=== PATIENT | male | born 1980 | race Caucasian/White ===

== ENCOUNTER 2016-07-04 20:23 | Observation (INO) | payer MEDICAID ==
[2016-07-04 21:37] LABS: % IMMATURE GRANULYOCYTES 0.3 % (0.0-1.1); ABSOLUTE IMMATURE GRANULOCYTES 0.02 10^3/uL (0.00-0.10); ADD DIFF? NO; ADD MORPH? NO; ADD SCAN? NO; ATYPICAL LYMPHOCYTE FLAG 20 (0-99); FRAGMENT RBC FLAG 0 (0-99); HEMATOCRIT 39.5 % (40.0-51.0); HEMOGLOBIN 14.1 g/dL (13.7-17.5); LEFT SHIFT FLG 0 (0-99); LIPEMIA HEMOLYSIS FLAG 90 (0-99); MEAN CELL HEMOGLOBIN 30.5 pg (27.9-34.1); MEAN CELL HEMOGLOBIN CONCENTR. 35.7 g/dL (32.4-36.7); MEAN CELL VOLUME 85.3 fL (81.5-99.8); MEAN PLATELET VOLUME 8.8 fL (8.7-11.7); PLATELET CLUMPS FLAG 10 (0-99); PLATELET COUNT 221 10^3/uL (150-400); RED BLOOD CELL COUNT 4.63 10^6/uL (4.40-6.38); RED CELL DISTRIBUTION WIDTH 11.9 % (11.5-15.2)
--- NOTE | 2016-07-04 21:42 | EDPHY ---
H & P Stated Complaint: abd pain, n/v/d Source: Patient Exam Limitations: No limitations - Personal History Tetanus Vaccine Date: within 10 yrs - Medical/Surgical History Hx Asthma: No Hx Chronic Respiratory Disease: No Hx Diabetes: No Hx Cardiac Disease: No Hx Renal Disease: No Hx Cirrhosis: No Hx Alcoholism: No Hx HIV/AIDS: No Hx Splenectomy or Spleen Trauma: No Other PMH: finger surg, heartburn - Social History Smoking Status: Current every day smoker Time Seen by Provider: 07/04/16 20:35 HPI/ROS: CHIEF COMPLAINT: Abdominal pain HISTORY OF PRESENT ILLNESS: 36-year-old male presents emergency department complaining of abdominal pain x2 days. Patient reports he started with epigastric discomfort that progressed to nausea, 1 episode of emesis yesterday, his pain has changed to lower abdomen worsening in his right lower quadrant today with loose stools today. Patient report a decreased appetite, chills. No blood in emesis or stool. Pain is not worse after eating. He denies back pain , no urinary frequency, urgency or dysuria. No other complaints. No recent sick contacts. REVIEW OF SYSTEMS: A comprehensive 10 point review of systems is otherwise negative aside from elements mentioned in the history of present illness. (Danae Dhaliwal) - Physical Exam Exam: Physical Exam Gen: Alert and Oriented, NAD HEENT: PERRL, moist mucous membranes NECK: no meningismus CV: regular rate and regular rhythm PULM: CTAB, no wheezes ABDOMEN: soft, right lower quadrant tenderness to palpation, positive Rovsing's , positive rebound tenderness BACK: No CVA tenderness NEURO: Neurologically grossly intact EXTREMITIES: normal appearing SKIN: no rash or break in skin on exposed skin PSYCH: answers questions appropriately. (Danae Dhaliwal) Constitutional: Initial Vital Signs Temperature (C) 36.9 C 07/04/16 20:28 Heart Rate 78 07/04/16 20:28 Respiratory Rate 20 07/04/16 20:28 Blood Pressure 103/80 07/04/16 20:28 O2 Sat (%) 95 07/04/16 20:28 O2 Delivery Mode Room Air Allergies/Adverse Reactions: No Known Allergies Allergy (Unverified 07/04/16 20:27) Medical Decision Making - Diagnostics Imaging Results: Imaging Impressions Abdomen CT 07/04/16 21:54 Impression: 1. Mild right lower quadrant mesenteric adenitis. 2. The majority the appendix appears normal; however, there is a short segmental component which is mildly thickened, measuring up to 9.0 mm, and an early or mild localized appendicitis cannot be excluded. There is no periappendiceal inflammation, or fluid fluid collection, however. 3. Mild hepatosplenomegaly. Findings were discussed with Danae Dhaliwal NP at 22:41, on 07/04/2016. ED Course/Re-evaluation: IV established, CBC and chemistry panel and urinalysis obtained. Patient has an exam suspicious for appendicitis. CBC shows no elevated white blood cell count, chemistry panel is unremarkable, LFTs and lipase normal. CT abdomen pelvis with IV contrast obtained showing mesenteric adenitis, a short segmental area of thickened appendix and constipation. The patient has no evidence of urinary tract infection. Dr. Vieira was consulted and he saw the patient. Patient is requiring IV pain medication. He will be admitted to the hospital with Dr. Vieira for continued observation. (Danae Dhaliwal) Differential Diagnosis: The differential diagnosis for the patient's abdominal pain included but was not limited to appendicitis, cholecystitis, hernias, testicular torsion, gastritis, and urinary tract infection. (Danae Dhaliwal) Other Provider: The patient was evaluated and managed by the Physician Controls Technician/ Nurse Practitioner. My co-signature indicates that I have reviewed this chart and I agree with the findings and plan of care as documented. I am the secondary supervising physician. (Nara Villarreal) - Data Points Laboratory Results: Laboratory Results 07/04/16 21:21 07/04/16 21:21 07/04/16 07/04/16 07/04/16 22:10 21:21 21:21 WBC 6.72 10^3/uL 10^3/uL (3.80-9.50) RBC 4.63 10^6/uL 10^6/uL (4.40-6.38) Hgb 14.1 g/dL g/dL (13.7-17.5) Hct 39.5 % L % (40.0-51.0) MCV 85.3 fL fL (81.5-99.8) MCH 30.5 pg pg (27.9-34.1) MCHC 35.7 g/dL g/dL (32.4-36.7) RDW 11.9 % % (11.5-15.2) Plt Count 221 10^3/uL 10^3/uL (150-400) MPV 8.8 fL fL (8.7-11.7) Neut % (Auto) 60.5 % % (39.3-74.2) Lymph % (Auto) 26.5 % % (15.0-45.0) [place] % (Auto) 9.1 % % (4.5-13.0) Eos % (Auto) 3.0 % % (0.6-7.6) Baso % (Auto) 0.6 % % (0.3-1.7) Nucleat RBC Rel Count 0.0 % % (0.0-0.2) Absolute Neuts (auto) 4.07 10^3/uL 10^3/uL (1.70-6.50) Absolute Lymphs (auto) 1.78 10^3/uL 10^3/uL (1.00-3.00) Absolute Monos (auto) 0.61 10^3/uL 10^3/uL (0.30-0.80) Absolute Eos (auto) 0.20 10^3/uL 10^3/uL (0.03-0.40) Absolute Basos (auto) 0.04 10^3/uL 10^3/uL (0.02-0.10) Absolute Nucleated RBC 0.00 10^3/uL 10^3/uL (0-0.01) Immature Gran % 0.3 % % (0.0-1.1) Immature Gran # 0.02 10^3/uL 10^3/uL (0.00-0.10) Sodium Potassium Chloride Carbon Dioxide Anion Gap BUN Creatinine Estimated GFR Glucose Calcium Total Bilirubin 1.4 mg/dL mg/dL (0.1-1.4) Conjugated Bilirubin 0.5 mg/dL mg/dL (0.0-0.5) Unconjugated Bilirubin 0.9 mg/dL mg/dL (0.0-1.1) AST 31 IU/L IU/L (17-59) ALT 42 IU/L IU/L (21-72) Alkaline Phosphatase 59 IU/L IU/L (38-126) Total Protein 6.6 g/dL g/dL (6.3-8.2) Albumin 4.3 g/dL g/dL (3.5-5.0) Lipase 106.0 IU/L IU/L (23-300) Urine Color PALE YELLOW Urine Appearance CLEAR Urine pH 6.0 (5.0-7.5) Ur Specific [place] 1.009 (1.002-1.030) Urine Protein NEGATIVE (NEGATIVE) Urine Ketones NEGATIVE (NEGATIVE) Urine Blood 2+ H (NEGATIVE) Urine Nitrate NEGATIVE (NEGATIVE) Urine Bilirubin NEGATIVE (NEGATIVE) Urine Urobilinogen NEGATIVE EU EU (0.2-1.0) Ur Leukocyte Esterase NEGATIVE (NEGATIVE) Urine RBC 1-3 /hpf /hpf (0-3) Urine WBC NONE SEEN /hpf /hpf (0-3) Ur Epithelial Cells NONE SEEN /lpf /lpf (NONE-1+) Urine Glucose NEGATIVE (NEGATIVE) 07/04/16 21:21 WBC RBC Hgb Hct MCV MCH MCHC RDW Plt Count MPV Neut % (Auto) Lymph % (Auto) [place] % (Auto) Eos % (Auto) Baso % (Auto) Nucleat RBC Rel Count Absolute Neuts (auto) Absolute Lymphs (auto) Absolute Monos (auto) Absolute Eos (auto) Absolute Basos (auto) Absolute Nucleated RBC Immature Gran % Immature Gran # Sodium 138 mEq/L mEq/L (134-144) Potassium 3.8 mEq/L mEq/L (3.5-5.2) Chloride 103 mEq/L mEq/L (97-110) Carbon Dioxide 25 mEq/l mEq/l (22-31) Anion Gap 10 mEq/L mEq/L (8-16) BUN 12 mg/dL mg/dL (7-23) Creatinine 0.9 mg/dL mg/dL (0.7-1.3) Estimated GFR > 60 Glucose 93 mg/dL mg/dL (70-100) Calcium 10.4 mg/dL mg/dL (8.5-10.4) Total Bilirubin Conjugated Bilirubin Unconjugated Bilirubin AST ALT Alkaline Phosphatase Total Protein Albumin Lipase Urine Color Urine Appearance Urine pH Ur Specific [place] Urine Protein Urine Ketones Urine Blood Urine Nitrate Urine Bilirubin Urine Urobilinogen Ur Leukocyte Esterase Urine RBC Urine WBC Ur Epithelial Cells Urine Glucose Medications Given: Discontinued Medications Hydromorphone HCl (Dilaudid) 0.5 mg IVP EDNOW ONE Stop: 07/04/16 23:05 Last Admin: 07/04/16 23:14 Dose: 0.5 mg Morphine Sulfate (Morphine) 4 mg IVP EDNOW ONE Stop: 07/04/16 22:18 Last Admin: 07/04/16 22:20 Dose: 4 mg Departure - Departure Disposition: [facility] Inpatient Acute Clinical Impression: Abdominal pain Qualifiers: Abdominal location: right lower quadrant Qualified Code(s): R10.31 - Right lower quadrant pain Condition: Fair
[2016-07-04 22:02] LABS: ANION GAP 10 mEq/L (8-16); CALCIUM 10.4 mg/dL (8.5-10.4); CARBON DIOXIDE 25 mEq/l (22-31); CHLORIDE 103 mEq/L (97-110); CREATININE 0.9 mg/dL (0.7-1.3); GLOMERULAR FILTRATION RATE > 60; GLUCOSE 93 mg/dL (70-100); POTASSIUM 3.8 mEq/L (3.5-5.2); SODIUM 138 mEq/L (134-144)
[2016-07-04] MEDS ORDERED: IOPAMIDOL (ISOVUE-300) 100 ML BTL IV ONE (22:06)
[2016-07-04 22:31] LABS: ALBUMIN 4.3 g/dL (3.5-5.0); BILIRUBIN,TOTAL 1.4 mg/dL (0.1-1.4); BILIRUBIN-CONJUGATED 0.5 mg/dL (0.0-0.5); BILIRUBIN-UNCONJUGATED 0.9 mg/dL (0.0-1.1); TOTAL PROTEIN 6.6 g/dL (6.3-8.2)
[2016-07-04 22:32] LABS: COLOR PALE YELLOW; LEUKOCYTE ESTERASE,URINE NEGATIVE (NEGATIVE); NITRITE,URINE NEGATIVE (NEGATIVE)
[2016-07-04 22:39] LABS: WBC,URINE NONE SEEN /hpf (0-3)
[2016-07-04] MEDS ORDERED: HYDROmorphONE/DILAUDID 1 MG/ML SYR IVP ONE (23:04)
[2016-07-04] MEDS ORDERED: HYDROmorphONE/DILAUDID 1 MG/ML SYR ONE (23:04)
[2016-07-04] MEDS ORDERED: ONDANSETRON 4 MG/2 ML VIAL IVP PRN (23:23)
--- NOTE | 2016-07-05 00:32 | GHP ---
[f rep st] PREOP HISTORY AND PHYSICAL DATE OF ADMISSION: 07/04/2016 ADMITTING DIAGNOSIS: Abdominal pain and mesenteric adenitis. HISTORY: The patient is a 36-year-old male, who upon awakening yesterday morning, had pain across his abdomen which would come and go. It was described as squeezing or achy and would wax and wane. It continued through today. He had a breakfast of yogurt that he had to force. For lunch, he had a [employer] sandwich which he appeared to eat without difficulty. At 5:30 he was feeling poorly and tried to induce vomiting (successfully) but noticed no improvement. He did not eat dinner, just had crackers and drank water. In the middle of the night, he had loose stool. For breakfast this morning he had boone and egg sandwich and coffee. He ate only a part of it. For lunch he had a duck egg. At 6 p.m. he had ham and white beans. At 8:15 he came to the ER. He was not hungry at that time. He has not had recent upper respiratory tract infection. Diarrhea is a chronic ongoing problem for him. He has had no prior abdominal surgery. He does have similar symptoms approximately monthly. There is no history of inflammatory bowel disease. PAST MEDICAL HISTORY: He smokes a quarter pack a day. He has 3-5 beers per week day and 5-10 beers per weekend day. He has no known drug allergies. He is not taking any medications. Prior surgeries have been a tendon repair in his left hand 2nd ray. He had a history of tonsillitis which has been recurrent, but he has never had a tonsillectomy. There is no history of rheumatic fever, tuberculosis, hepatitis , transfusions, or HIV. REVIEW OF SYSTEMS: He has gastroesophageal reflux disease several times per week. Review of Systems otherwise quite negative. There are no limitations to his activities. No history of recent steroid use. PHYSICAL EXAMINATION: GENERAL: He is seen walking around his room. He is awake, alert and oriented. There are no focal lateralizing neurologic findings. BACK: Unremarkable. LUNGS: Clear to auscultation. CARDIAC: Shows S1, S2 to be normal with normal split of S2, without murmurs, rubs, or gallops. LYMPHATICS: There is no cervical or supraclavicular, axillary or inguinal lymphadenopathy. NECK: Thyroid is not enlarged. ABDOMEN: Shows hypoactive bowel sounds. He is minimally tender with cough in the right upper quadrant. Obturator sign is negative. Psoas sign is minimally positive. To palpation, his left upper quadrant on a scale of 1-10, is 2, left mid abdomen is 1, left lower quadrant is 1, epigastrium is 3, periumbilical area is 2, suprapubic area is 3, right upper quadrant is 6, right mid abdomen is 5, right lower quadrant is 4. CT shows mesenteric adenitis. It does show the appendix to have a variably thickened wall with gas present in the lumen without periappendiceal stranding. His white blood count is 6.0 with 60% neutrophils, hematocrit is 39.5, platelet count is 221. Sodium is 138, BUN is 12, creatinine is 0.9. His bilirubin is 1.4 with unconjugated bilirubin of 0.9. Lipase is 106. IMPRESSION: This patient's examination and findings are not consistent with acute appendicitis but that cannot be totally ruled out. I think this will probably have a final diagnosis of mesenteric adenitis. He will be admitted to the hospital for supportive care, observation and re-evaluation. /[id number]/MODL MTDD
[2016-07-05] MEDS: HYDROmorphONE/DILAUDID 1 MG/ML SYR IVP PRN ×6 (00:37→12:49)
[2016-07-05] MEDS: KETOROLAC 30 MG/1 ML SDV IVP SCH ×4 (00:38→18:34)
[2016-07-05] MEDS: LR 1,000 ML IV SCH ×2 (00:38→10:37)
[2016-07-05] MEDS: ACETAMINOPHEN 500 MG TAB PO SCH ×3 (04:28→14:21)
[2016-07-05 06:06] LABS: ALANINE AMINOTRANSFERASE 45 IU/L (21-72); ALBUMIN 3.7 g/dL (3.5-5.0); ALKALINE PHOSPHATASE 48 IU/L (38-126); ANION GAP 7 mEq/L (8-16); ASPARTATE AMINOTRANSFERASE 26 IU/L (17-59); BILIRUBIN,TOTAL 1.3 mg/dL (0.1-1.4); CALCIUM 9.4 mg/dL (8.5-10.4); CARBON DIOXIDE 24 mEq/l (22-31); CHLORIDE 106 mEq/L (97-110); CREATININE 0.9 mg/dL (0.7-1.3); GLOMERULAR FILTRATION RATE > 60; GLUCOSE 98 mg/dL (70-100); SODIUM 137 mEq/L (134-144); TOTAL PROTEIN 6.1 g/dL (6.3-8.2)
[2016-07-05 06:07] LABS: % IMMATURE GRANULYOCYTES 0.1 % (0.0-1.1); ABSOLUTE IMMATURE GRANULOCYTES 0.01 10^3/uL (0.00-0.10); ADD DIFF? NO; ADD MORPH? NO; ADD SCAN? NO; ATYPICAL LYMPHOCYTE FLAG 0 (0-99); FRAGMENT RBC FLAG 0 (0-99); HEMATOCRIT 38.2 % (40.0-51.0); HEMOGLOBIN 13.4 g/dL (13.7-17.5); LEFT SHIFT FLG 0 (0-99); LIPEMIA HEMOLYSIS FLAG 90 (0-99); MEAN CELL HEMOGLOBIN 30.7 pg (27.9-34.1); MEAN CELL HEMOGLOBIN CONCENTR. 35.1 g/dL (32.4-36.7); MEAN CELL VOLUME 87.4 fL (81.5-99.8); MEAN PLATELET VOLUME 9.2 fL (8.7-11.7); PLATELET CLUMPS FLAG 0 (0-99); PLATELET COUNT 203 10^3/uL (150-400); RED BLOOD CELL COUNT 4.37 10^6/uL (4.40-6.38); RED CELL DISTRIBUTION WIDTH 11.9 % (11.5-15.2)
[2016-07-05] MEDS ORDERED: POLYETHYLENE GLYCOL 3350 17 GM PKT PO PRN (11:28)
--- NOTE | 2016-07-05 11:32 | SOAPPROG ---
SOAP Progress Note Assessment/Plan: 07/05/16 11:29 Assessment: VSS, WBC stable Still hungry. still has pain. I feel that this is mesenteric adenitis and not appendicitis [id number] progression is possible. Plan: Will try clear liquids and advance as tolerated. If he fails , will re-assess for exploration. 07/05/16 11:32 Subjective: I'm hungry!!! Objective: Vital Signs Temp Pulse Resp BP Pulse Ox 36.3 C 60 18 111/62 96 07/05/16 08:21 07/05/16 08:21 07/05/16 08:21 07/05/16 08:21 07/05/16 08:21 Laboratory Results 07/05/16 05:30 07/05/16 05:30 07/04/16 07/05/16 07/06/16 05:59 05:59 05:59 Intake Total 520 Output Total 300 120 Balance 220 -120 - Time Spent With Patient Time Spent With Patient: 25 Physical Exam - Physical Exam General Appearance: WD/WN, alert, no apparent distress, mild distress Neck: non-tender, full range of motion, supple, normal inspection Respiratory: chest non-tender, lungs clear, normal breath sounds Cardiac/Chest: regular rate, rhythm Abdomen: non-tender, soft, other (hypoactive bowel sounds) Male Genitalia: deferred Rectal: deferred Back: Normal inspection Skin: normal color, warm/dry Lymphatic: no adenopathy Neuro/Psych: no motor/sensory deficits, alert, normal mood/affect, oriented x 3 ICD10 Worksheet Patient Problems: Problems Problem Status Onset Abdominal pain Acute
[2016-07-05] MEDS: HYDROmorphONE/DILAUDID 2 MG TAB PO PRN ×2 (14:22→18:27)
[2016-07-05 15:41] VITALS: O2SAT 95
[2016-07-05 18:15] VITALS: TEMP 97.7
[2016-07-05] MEDS ORDERED: ALPRAZolam 0.25 MG TAB PO PRN (18:15)
--- NOTE | 2016-07-05 21:15 | GDS ---
[f rep st] DISCHARGE SUMMARY DISCHARGE DIAGNOSES: Mesenteric adenitis. Constipation. Anxiety. DISCHARGE CONDITION: Improved. DISCHARGE MEDICATIONS: Include Tylenol 1000 mg every 8 hours, Motrin 200 mg every 6 hours, Dilaudid 2 mg every 4 hours as needed for severe pain, Xanax 0.5 mg every 8 hours as needed for anxiety. He may continue to take his Tums as needed for indigestion, as well as his MiraLAX. DISCHARGE INSTRUCTIONS: I have suggested he avoid constipating foods such as bananas, rice, applesauce, and cheese, that he markedly decrease his alcohol intake, and that he stop smoking. He is agreeable to both these suggestions. I suggest that he find a primary care physician. Listed on the discharge is Dr. Emigdio Matthews' office for follow up. It is noted this is not for primary care, rather followup for his current abdominal issue should there be a continuing problem. /[id number]/MODL MTDD
[2016-07-05 21:43] VITALS: BP 108/59; PULSE 53; RESP 16
[2016-07-06] MEDS ORDERED: IBUPROFEN SUSP 100 MG/5 ML UDCUP PO SCH (18:30)
== END 2016-07-05 21:52 | disposition home or self-care (01) ==
LOC: F1N 07-05 00:24
PROVIDERS: ADMIT Surgery; ATTEND Surgery
DX: I88.0 Nonspecific mesenteric lymphadenitis (principal); K59.00 Constipation, unspecified; F41.9 Anxiety disorder, unspecified; F17.210 Nicotine dependence, cigarettes, uncomplicated
CPT/HCPCS: 74177; 96374; 96375; 99285; G0378; J1170; J1885; Q9967